=== PATIENT | female | born 1970 | race African-American/Black ===

== ENCOUNTER 2017-01-09 10:39 | Emergency (ER) | payer OTHER ==
[2017-01-09 10:45] VITALS: TEMP 98.2; BMI 18.0
--- NOTE | 2017-01-09 11:06 | PDOC ---
History of Present Illness - General Chief Complaint: Vaginal Bleeding Stated Complaint: DIZZINESS Time Seen by Provider: 01/09/17 11:01 Past History - Past Medical History Allergies/Adverse Reactions: Allergies Allergy/AdvReac Type Severity Reaction Status Date / Time No Known Allergies Allergy Verified 01/09/17 10:43 Home Medications: Ambulatory Orders NK [No Known Home Medication] 01/09/17 - Psycho/Social/Smoking Cessation Hx Anxiety: No Suicidal Ideation: No Smoking History: Never smoked Have you smoked in the past 12 months: No Information on smoking cessation initiated: No Hx Alcohol Use: No Drug/Substance Use Hx: No Substance Use Type: None *Physical Exam - Vital Signs Last Vital Signs Temp Pulse Resp BP Pulse Ox 98.2 F 86 20 151/91 100 01/09/17 10:43 01/09/17 10:43 01/09/17 10:43 01/09/17 10:43 01/09/17 10:43 ED Treatment Course - LABORATORY CBC & Chemistry Diagram: 01/09/17 11:23 01/09/17 11:23 *DC/Admit/Observation/Transfer Diagnosis at time of Disposition: Vaginal bleeding in - Discharge Dispostion Disposition: HOME Condition at time of disposition: Good - Referrals Referrals: STAFF,NOT ON [Primary Care Provider] - - Patient Instructions Printed Discharge Instructions: DI for Vaginal Bleeding During Additional Instructions: Please bring copy of ultrasound and blood work with you to your ACCOUNTING FILE CLERK. Patient plenty of fluids and continue taking her iron pills. If your symptoms worsen he may return to the ED. Otherwise follow-up with your ACCOUNTING FILE CLERK this week as discussed
[2017-01-09] MEDS ORDERED: SODIUM CHLORIDE 1,000 ML IV STA (11:14)
[2017-01-09 11:54] LABS: URINE APPEARANCE SLCLOUDY; URINE BILIRUBIN NEGATIVE (NEGATIVE); URINE BLOOD 3+ (NEGATIVE); URINE COLOR LTYELLOW; URINE GLUCOSE (UA) NEGATIVE (NEGATIVE); URINE KETONE NEGATIVE (NEGATIVE); URINE LEUK ESTERASE NEGATIVE (NEGATIVE); URINE NITRITE NEGATIVE (NEGATIVE); URINE UROBILINOGEN NEGATIVE mg/dL (0.2-1.0)
[2017-01-09 12:03] LABS: ALBUMIN 4.1 g/dl (3.4-5.0); ANION GAP 8 (8-16); CO2 28 mmol/L (21-32); CREATININE 0.8 mg/dL (0.55-1.02); GLUCOSE,RANDOM 87 mg/dL (74-106); SGOT/AST 22 U/L (15-37); SGPT/ALT 25 U/L (12-78); TOT PROT 7.7 g/dl (6.4-8.2)
[2017-01-09 12:08] LABS: ALK PHOS 50 U/L (45-117); BASOPHIL 0.9 % (0-2.0); BILIRUBIN,TOTAL 0.4 mg/dL (0.2-1.0); EOSINOPHIL 4.4 % (0-4.5); MCH 28.6 pg (25.7-33.7); MCHC 32.4 g/dl (32.0-36.0); MEAN CELL VOLUME 88.2 fl (80-96); MEAN PLT VOLUME 9.7 fl (7.5-11.1); NEUTROPHILS 68.6 % (42.8-82.8); PLATELET COUNT 244 K/MM3 (134-434); RDW 17.3 % (11.6-15.6); WHITE BLOOD COUNT 5.6 K/mm3 (4.0-10.0)
[2017-01-09 12:15] LABS: URINE PROTEIN 1+ (NEGATIVE)
--- NOTE | 2017-01-09 12:23 | PDOC ---
History of Present Illness - General Chief Complaint: Vaginal Bleeding Stated Complaint: DIZZINESS Time Seen by Provider: 01/09/17 11:01 History Source: Patient Exam Limitations: No Limitations - History of Present Illness Travel History: No Initial Comments: 01/09/17 12:23 46-year-old female presents to the ED with complaints of increasing vaginal bleeding for the past 3 days associated mild lower abdominal cramping patient states is approximately 4 weeks and had a beta-hCG done 3 days ago by her SENIOR RESERVATIONS AGENT which was around 1200 and then repeated yesterday but did not get her results and when the bleeding increased this morning she decided come to the ER. Patient denies fever, chills but states mild weakness and dizziness since noting the increase of blood this morning. Patient does state is on iron for anemia but denies shortness of breath with exertion. Timing/Duration: reports: getting worse Quality: reports: mild Abdominal Pain Onset Location: reports: suprapubic Pain Radiation: reports: no radiation Activities at Onset: reports: none Aggravating Factors: improves with: None Alleviating Factors: improves with: None Past History - Travel Traveled outside of the country in the last 30 days: No Close contact w/someone who was outside of country & ill: No - Past Medical History Allergies/Adverse Reactions: Allergies Allergy/AdvReac Type Severity Reaction Status Date / Time No Known Allergies Allergy Verified 01/09/17 10:43 Home Medications: Ambulatory Orders NK [No Known Home Medication] 01/09/17 - Reproductive History Is Patient Now?: Yes (#): 5 Para: 2 Therapeutic (s) & number: Yes (2) - Psycho/Social/Smoking Cessation Hx Anxiety: No Suicidal Ideation: No Smoking History: Never smoked Have you smoked in the past 12 months: No Information on smoking cessation initiated: No Hx Alcohol Use: No Drug/Substance Use Hx: No Substance Use Type: None Patient Lives Alone: No Review of Systems - Review of Systems Able to Perform ROS?: No Is the patient limited Jamaican proficient: No Constitutional: Yes: Weakness. No: Fever HEENTM: No: Symptoms Reported Respiratory: No: Symptoms reported Cardiac (ROS): Yes: Lightheadedness ABD/GI: Yes: Abdominal cramping. No: Blood Streaked Bowels, Diarrhea, Nausea, Rectal Bleeding : Yes: Discharge (vaginal bleeding). No: Dysuria Musculoskeletal: No: Symptoms Reported Integumentary: No: Symptoms Reported Neurological: Yes: Weakness (mild generalized), Dizziness (mild upon awakes morning) *Physical Exam - Vital Signs Last Vital Signs Temp Pulse Resp BP Pulse Ox 98.2 F 86 20 151/91 100 01/09/17 10:43 01/09/17 10:43 01/09/17 10:43 01/09/17 10:43 01/09/17 10:43 - Physical Exam General Appearance: Yes: Nourished, Appropriately Dressed. No: Apparent Distress HEENT: positive: EOMI, LUCITA. negative: Pale Conjunctivae Neck: positive: Supple Respiratory/Chest: positive: Lungs Clear, Normal Breath Sounds. negative: Respiratory Distress, Accessory Muscle Use Cardiovascular: positive: Regular Rhythm, Regular Rate. negative: Murmur Female Pelvic Exam: positive: cervical os closed, vaginal bleeding (bright red moderate amount. no clots) Gastrointestinal/Abdominal: positive: Normal Bowel Sounds, Soft, Tenderness ( epigastric ). negative: Distended, Guarding, Rebound Extremity: positive: Normal Capillary Refill. negative: Pedal Edema Integumentary: positive: Normal Color, Warm, Moist Neurologic: positive: Motor Strength 5/5 (ambulatory) ED Treatment Course - LABORATORY CBC & Chemistry Diagram: 01/09/17 11:23 01/09/17 11:23 - ADDITIONAL ORDERS Additional order review: Laboratory Results 01/09/17 01/09/17 11:23 11:10 Sodium 138 Potassium 3.7 Chloride 102 Carbon Dioxide 28 Anion Gap 8 BUN 9 Creatinine 0.8 Creat Clearance w eGFR > 60 Random Glucose 87 Calcium 9.0 Total Bilirubin 0.4 AST 22 ALT 25 Alkaline Phosphatase 50 Total Protein 7.7 Albumin 4.1 Beta HCG, Quant 381.6 Urine Color Ltyellow Urine Appearance Slcloudy Urine pH 6.0 Urine Protein 1+ H Urine Glucose (UA) Negative Urine Ketones Negative Urine Blood 3+ H Urine Nitrite Negative Urine Bilirubin Negative Urine Urobilinogen Negative Ur Leukocyte Esterase Negative 01/09/17 11:23 RBC 4.29 MCV 88.2 MCHC 32.4 RDW 17.3 H MPV 9.7 Neutrophils % 68.6 Lymphocytes % 18.9 Monocytes % 7.2 Eosinophils % 4.4 Basophils % 0.9 - RADIOLOGY Radiology Studies Ordered: Category Date Time Status TRANSVAGINAL US PREG [US] Stat Ultrasound 01/09/17 12:15 Ordered - Medications Given in the ED: ED Medications Discontinued Medications Generic Name Dose Route Start Last Admin Trade Name Ne PRN Reason Stop Dose Admin Sodium Chloride 1,000 mls @ 1,000 mls/hr 01/09/17 11:14 01/09/17 11:30 Normal Saline - IV 01/09/17 12:13 1,000 mls/hr ASDIR STA Administration Medical Decision Making - Medical Decision Making 01/09/17 12:05 Patient complains of patient approximately 3-4 weeks based on LMP presents with increasing vaginal bleeding and cramping. Patient states had a beta hCG 3 days ago of 1200 and was seen again yesterday by her SENIOR RESERVATIONS AGENT but did not follow-up for results and came to the ER. Patient on exam had bright red vaginal bleeding without clots. Patient mild tenderness to suprapubic region. Patient ordered for labs including CBC, comp, urinalysis, type and screen, and beta hCG. Patient will be ordered 4 ultrasound once labs are resulted. 01/09/17 12:46 Laboratory Tests 01/09/17 01/09/17 01/09/17 11:10 11:23 11:23 WBC 5.6 Hgb 12.3 Hct 37.8 Plt Count 244 Neutrophils % 68.6 Sodium 138 Potassium 3.7 Chloride 102 Anion Gap 8 BUN 9 Creatinine 0.8 Random Glucose 87 Beta HCG, Quant 381.6 Urine Protein 1+ H Urine Blood 3+ H Urine Nitrite Negative Ur Leukocyte Esterase Negative Urine RBC 475 Urine WBC 14 01/09/17 13:53 Nose and endometrial echo complex measuring 1 cm with no free fluid noted in the cul-de-sac. There are small uterine fibroids noted measuring 201.5 cm each. The ovaries are not identified. There was no evidence of intrauterine . Extrauterine cannot be entirely excluded. Pt will be discharged home and told to f/u with her KEYBOARD INSTRUMENT REPAIRER this week. *DC/Admit/Observation/Transfer Diagnosis at time of Disposition: Vaginal bleeding in Qualifiers: Trimester: first trimester Qualified Code(s): O46.91 - Antepartum hemorrhage, unspecified, first trimester - Discharge Dispostion Disposition: HOME Condition at time of disposition: Good - Referrals Referrals: STAFF,NOT ON [Primary Care Provider] - - Patient Instructions Printed Discharge Instructions: DI for Vaginal Bleeding During Additional Instructions: Please bring copy of ultrasound and blood work with you to your KEYBOARD INSTRUMENT REPAIRER. Patient plenty of fluids and continue taking her iron pills. If your symptoms worsen he may return to the ED. Otherwise follow-up with your KEYBOARD INSTRUMENT REPAIRER this week as discussed
[2017-01-09 12:26] LABS: URINE MUCUS RARE; URINE RBC 475 /hpf (0-3); URINE WBC 14 /hpf (3-5)
--- NOTE | 2017-01-09 12:43 | PDOC ---
*Physical Exam - Vital Signs Last Vital Signs Temp Pulse Resp BP Pulse Ox 98.2 F 86 20 151/91 100 01/09/17 10:43 01/09/17 10:43 01/09/17 10:43 01/09/17 10:43 01/09/17 10:43 ED Treatment Course - LABORATORY CBC & Chemistry Diagram: 01/09/17 11:23 01/09/17 11:23 - ADDITIONAL ORDERS Additional order review: Laboratory Results 01/09/17 01/09/17 11:23 11:10 Sodium 138 Potassium 3.7 Chloride 102 Carbon Dioxide 28 Anion Gap 8 BUN 9 Creatinine 0.8 Creat Clearance w eGFR > 60 Random Glucose 87 Calcium 9.0 Total Bilirubin 0.4 AST 22 ALT 25 Alkaline Phosphatase 50 Total Protein 7.7 Albumin 4.1 Beta HCG, Quant 381.6 Urine Color Ltyellow Urine Appearance Slcloudy Urine pH 6.0 Urine Protein 1+ H Urine Glucose (UA) Negative Urine Ketones Negative Urine Blood 3+ H Urine Nitrite Negative Urine Bilirubin Negative Urine Urobilinogen Negative Ur Leukocyte Esterase Negative Urine RBC 475 Urine WBC 14 Ur Epithelial Cells Rare Urine Mucus Rare 01/09/17 11:23 RBC 4.29 MCV 88.2 MCHC 32.4 RDW 17.3 H MPV 9.7 Neutrophils % 68.6 Lymphocytes % 18.9 Monocytes % 7.2 Eosinophils % 4.4 Basophils % 0.9 - Medications Given in the ED: ED Medications Discontinued Medications Generic Name Dose Route Start Last Admin Trade Name Freq PRN Reason Stop Dose Admin Sodium Chloride 1,000 mls @ 1,000 mls/hr 01/09/17 11:14 01/09/17 11:30 Normal Saline - IV 01/09/17 12:13 1,000 mls/hr ASDIR STA Administration Medical Decision Making - Medical Decision Making 01/09/17 12:42 Patient seen and evaluated with the nurse practitioner. I agree with the overall evaluation, assessment, and management with the following summary of visit: 46-year-old female presenting with persistent vaginal bleeding, approximate 4 weeks gestation tracking hCG as outpatient but with worsening bleeding today and lightheadedness so presents for evaluation. Agree with management as outlined including labs and IV fluids, hCG seems to be trending downward suggestive of spontaneous miscarriage. *DC/Admit/Observation/Transfer Diagnosis at time of Disposition: Antepartum hemorrhage Qualifiers: Trimester: first trimester Qualified Code(s): O46.91 - Antepartum hemorrhage, unspecified, first trimester
[2017-01-09 14:47] VITALS: BP 142/82; PULSE 81
== END 2017-01-09 14:25 | disposition home or self-care (01) ==
LOC: JER 10:39
PROC: 3E0337Z Introduction of Electrolytic and Water Balance Substance into Peripheral Vein, Percutaneous Approach (ICD-10-PCS; principal; 2017-01-09)
DX: O26.891 Other specified pregnancy related conditions, first trimester (principal); O46.91 Antepartum hemorrhage, unspecified, first trimester; O34.11 Maternal care for benign tumor of corpus uteri, first trimester; D25.9 Leiomyoma of uterus, unspecified; Z3A.01 Less than 8 weeks gestation of pregnancy
CPT/HCPCS: 36415; 76817-TC; 80053; 81003; 81015; 84702; 85025; 86850; 86900; 86901; 87086; 96360; 99283-25

== ENCOUNTER 2017-03-03 14:00 | Emergency (ER) | payer SELFPAY ==
[2017-03-03 14:13] VITALS: TEMP 98.6; BMI 18.3
[2017-03-03] MEDS ORDERED: SODIUM CHLORIDE 1,000 ML IV STA (14:38)
[2017-03-03 14:51] LABS: EOSINOPHIL 3.7 % (0-4.5); MCH 29.7 pg (25.7-33.7); MCHC 32.9 g/dl (32.0-36.0); MEAN CELL VOLUME 90.3 fl (80-96); MEAN PLT VOLUME 9.3 fl (7.5-11.1); NEUTROPHILS 62.5 % (42.8-82.8); PLATELET COUNT 227 K/MM3 (134-434); RDW 17.8 % (11.6-15.6); WHITE BLOOD COUNT 5.4 K/mm3 (4.0-10.0)
[2017-03-03 14:58] LABS: URINE APPEARANCE CLEAR; URINE BILIRUBIN NEGATIVE (NEGATIVE); URINE BLOOD 3+ (NEGATIVE); URINE COLOR RED; URINE GLUCOSE (UA) NEGATIVE (NEGATIVE); URINE KETONE NEGATIVE (NEGATIVE); URINE LEUK ESTERASE NEGATIVE (NEGATIVE); URINE NITRITE NEGATIVE (NEGATIVE); URINE UROBILINOGEN NEGATIVE mg/dL (0.2-1.0)
[2017-03-03 14:59] LABS: URINE PROTEIN 1+ (NEGATIVE)
[2017-03-03 15:12] LABS: CALCIUM OXALATE CRYSTALS RARE /hpf (NONE SEEN); URINE BACTERIA FEW /hpf (NONE SEEN); URINE RBC 61 /hpf (0-3); URINE WBC 67 /hpf (3-5)
[2017-03-03 15:19] LABS: ALBUMIN 3.5 g/dl (3.4-5.0); ANION GAP 7 (8-16); CALCIUM 8.2 mg/dL (8.5-10.1); CO2 25 mmol/L (21-32); GLUCOSE,RANDOM 80 mg/dL (74-106); SGPT/ALT 18 U/L (12-78)
[2017-03-03 15:21] LABS: BILIRUBIN,TOTAL 0.3 mg/dL (0.2-1.0); CREATININE 0.6 mg/dL (0.55-1.02); SGOT/AST 16 U/L (15-37); TOT PROT 6.7 g/dl (6.4-8.2)
--- NOTE | 2017-03-03 15:21 | PDOC ---
History of Present Illness <Ramiro Clemente - Last Filed: 03/03/17 15:38> - History of Present Illness Initial Comments: 03/03/17 15:20 "The patient is a 46 year old female, with a significant past medical history of anemia and one previous miscarriage (December,), who presents to the emergency department complaining of lightheadedness beginning approx. three days ago and palpitations that began today (now resolved). The patient reports that earlier today she felt hot and dizzy like she was going to syncopize and reports palpitations that lasted for a while (patient unable to provide exact duration of palpitations). Denies CP/SOB. She states she had an episode of loose stool today. The patient reports that she is currently on her menstrual period and is experiencing vaginal bleeding and associated abdominal cramps. She denies loss of consciousness. She denies chance of . She denies recent fever or chills. She denies recent vomiting or constipation. She denies recent dysuria, frequency, urgency or hematuria. She denies recent chest pain or shortness of breath. Allergies: NKA Primary Care Physician: Dr. Tom Nava <Carlton Agustin - Last Filed: 03/03/17 16:40> - General Chief Complaint: Lightheaded Stated Complaint: DIZINESS Time Seen by Provider: 03/03/17 14:26 Past History <Ramiro Clemente - Last Filed: 03/03/17 15:38> - Past Medical History Other medical history: DENIES. - Reproductive History (#): 5 Para: 2 Therapeutic (s) & number: Yes (2) - Psycho/Social/Smoking Cessation Hx Anxiety: No Suicidal Ideation: No Smoking History: Never smoked Have you smoked in the past 12 months: No Hx Alcohol Use: No Drug/Substance Use Hx: No Substance Use Type: None <Carlton Agustin - Last Filed: 03/03/17 16:40> - Past Medical History Allergies/Adverse Reactions: Allergies Allergy/AdvReac Type Severity Reaction Status Date / Time No Known Allergies Allergy Verified 03/03/17 14:09 Home Medications: Ambulatory Orders Cephalexin [Keflex] 500 mg PO BID #14 capsule 03/03/17 Review of Systems - Review of Systems Comments:: 03/03/17 15:25 "GENERAL/CONSTITUTIONAL: +weakness.No fever or chills. HEAD, EYES, EARS, NOSE AND THROAT: No change in vision. No ear pain or discharge. No sore throat. CARDIOVASCULAR: +Palpitations (resolved). No chest pain or shortness of breath. RESPIRATORY: No cough, wheezing, or hemoptysis. GASTROINTESTINAL: +Diarrhea. No nausea, vomiting or constipation. GENITOURINARY: No dysuria, frequency, or change in urination. MUSCULOSKELETAL: No joint or muscle swelling or pain. No neck or back pain. SKIN: No rash NEUROLOGIC: No headache, no dizziness, No loss of consciousness. ENDOCRINE: No increased thirst. No abnormal weight change. HEMATOLOGIC/LYMPHATIC: No anemia, easy bleeding, or history of blood clots. ALLERGIC/IMMUNOLOGIC: No hives or skin allergy. " <Carlton Agustin - Last Filed: 03/03/17 16:40> *Physical Exam - Vital Signs Last Vital Signs Temp Pulse Resp BP Pulse Ox 98.6 F 83 19 152/94 100 03/03/17 14:10 03/03/17 14:10 03/03/17 14:10 03/03/17 14:10 03/03/17 14:10 <Ramiro Clemente - Last Filed: 03/03/17 15:38> - Vital Signs Last Vital Signs Temp Pulse Resp BP Pulse Ox 98.6 F 83 19 152/94 100 03/03/17 14:10 03/03/17 14:10 03/03/17 14:10 03/03/17 14:10 03/03/17 14:10 - Physical Exam Comments: 03/03/17 15:27 "GENERAL: Awake, alert, and fully oriented, in no acute distress HEAD: No signs of trauma EYES: PERRLA, EOMI, sclera anicteric, conjunctiva clear ENT: Auricles normal inspection, hearing grossly normal, nares patent, oropharynx clear without exudates. Moist mucosa NECK: Normal ROM, supple, no lymphadenopathy, JVD, or masses LUNGS: Breath sounds equal, clear to auscultation bilaterally. No wheezes, and no crackles HEART: Regular rate and rhythm, normal S1 and S2, no murmurs, rubs or gallops ABDOMEN: Soft, nontender, HYPERactive bowel sounds. No guarding, no rebound. No masses EXTREMITIES: Normal range of motion, no edema. No clubbing or cyanosis. No cords , erythema, or tenderness NEUROLOGICAL: Cranial nerves II through XII intact. 5/5 strength+sensation in all extremities, cerebellar tests normal, Normal speech, normal gait SKIN: Warm, Dry, normal turgor, no rashes or lesions noted. " <Calrton Agustin - Last Filed: 03/03/17 16:40> ED Treatment Course - LABORATORY CBC & Chemistry Diagram: 03/03/17 14:40 03/03/17 14:40 - ADDITIONAL ORDERS Additional order review: Laboratory Results 03/03/17 03/03/17 03/03/17 14:45 14:40 14:40 Sodium 133 L Potassium 3.8 Chloride 101 Carbon Dioxide 25 Anion Gap 7 L BUN 6 L D Creatinine 0.6 D Creat Clearance w eGFR > 60 Random Glucose 80 Calcium 8.2 L Total Bilirubin 0.3 D AST 16 D ALT 18 D Alkaline Phosphatase 45 Creatine Kinase 114 Troponin I < 0.02 Total Protein 6.7 Albumin 3.5 TSH 1.96 Beta HCG, Quant < 1.0 Urine Color Red Urine Appearance Clear Urine pH 8.0 D Urine Protein 1+ H Urine Glucose (UA) Negative Urine Ketones Negative Urine Blood 3+ H Urine Nitrite Negative Urine Bilirubin Negative Urine Urobilinogen Negative Urine RBC 61 Urine WBC 67 Ur Epithelial Cells Rare Calcium Oxalate Crystal Rare Urine Bacteria Few Blood Type Cancelled Antibody Screen Cancelled Spec Expiration Date Cancelled 03/03/17 03/03/17 14:40 14:40 Sodium Cancelled Potassium Cancelled Chloride Cancelled Carbon Dioxide Cancelled Anion Gap Cancelled BUN Cancelled Creatinine Cancelled Creat Clearance w eGFR Cancelled Random Glucose Cancelled Calcium Cancelled Total Bilirubin Cancelled AST Cancelled ALT Cancelled Alkaline Phosphatase Cancelled Creatine Kinase Cancelled Cancelled Troponin I Cancelled Cancelled Total Protein Cancelled Albumin Cancelled TSH Beta HCG, Quant Urine Color Urine Appearance Urine pH Urine Protein Urine Glucose (UA) Urine Ketones Urine Blood Urine Nitrite Urine Bilirubin Urine Urobilinogen Urine RBC Urine WBC Ur Epithelial Cells Calcium Oxalate Crystal Urine Bacteria Blood Type Antibody Screen Spec Expiration Date 03/03/17 14:40 RBC 3.80 MCV 90.3 MCHC 32.9 RDW 17.8 H MPV 9.3 Neutrophils % 62.5 Lymphocytes % 22.7 D Monocytes % 10.1 Eosinophils % 3.7 Basophils % 1.0 - Medications Given in the ED: ED Medications Discontinued Medications Generic Name Dose Route Start Last Admin Trade Name Ne PRN Reason Stop Dose Admin Sodium Chloride 1,000 mls @ 1,000 mls/hr 03/03/17 14:38 03/03/17 14:53 Normal Saline - IV 03/03/17 15:37 1,000 mls/hr ASDIR STA Administration <Ramiro Clemente - Last Filed: 03/03/17 15:38> - LABORATORY CBC & Chemistry Diagram: 03/03/17 14:40 03/03/17 14:40 - ADDITIONAL ORDERS Additional order review: Laboratory Results 03/03/17 03/03/17 03/03/17 14:45 14:40 14:40 Sodium Cancelled Potassium Cancelled Chloride Cancelled Carbon Dioxide Cancelled Anion Gap Cancelled BUN Cancelled Creatinine Cancelled Creat Clearance w eGFR Cancelled Random Glucose Cancelled Calcium Cancelled Total Bilirubin Cancelled AST Cancelled ALT Cancelled Alkaline Phosphatase Cancelled Creatine Kinase Cancelled Troponin I Cancelled Total Protein Cancelled Albumin Cancelled Urine Color Red Urine Appearance Clear Urine pH 8.0 D Urine Protein 1+ H Urine Glucose (UA) Negative Urine Ketones Negative Urine Blood 3+ H Urine Nitrite Negative Urine Bilirubin Negative Urine Urobilinogen Negative Urine RBC 61 Urine WBC 67 Ur Epithelial Cells Rare Calcium Oxalate Crystal Rare Urine Bacteria Few Blood Type Cancelled Antibody Screen Cancelled Spec Expiration Date Cancelled 03/03/17 14:40 Sodium Potassium Chloride Carbon Dioxide Anion Gap BUN Creatinine Creat Clearance w eGFR Random Glucose Calcium Total Bilirubin AST ALT Alkaline Phosphatase Creatine Kinase Cancelled Troponin I Cancelled Total Protein Albumin Urine Color Urine Appearance Urine pH Urine Protein Urine Glucose (UA) Urine Ketones Urine Blood Urine Nitrite Urine Bilirubin Urine Urobilinogen Urine RBC Urine WBC Ur Epithelial Cells Calcium Oxalate Crystal Urine Bacteria Blood Type Antibody Screen Spec Expiration Date 03/03/17 14:40 RBC 3.80 MCV 90.3 MCHC 32.9 RDW 17.8 H MPV 9.3 Neutrophils % 62.5 Lymphocytes % 22.7 D Monocytes % 10.1 Eosinophils % 3.7 Basophils % 1.0 - RADIOLOGY Radiology Studies Ordered: Category Date Time Status CHEST PA & LAT [RAD] Stat Radiology 03/03/17 14:38 Ordered <Carlton Agustin - Last Filed: 03/03/17 16:40> Medical Decision Making - Medical Decision Making 03/03/17 15:28 46 F with weakness and transient episode of palpitations + presyncope in the context of possible diarrheal illness. Pt also currently menstruating. Symptoms likely 2/2 volume depletion from diarrhea. Also consider anemia. Less likely to be cardiac in etiology as pt with no cardiac history and has normal vitals. - Labs - EKG - CXR, UA - IVF 03/03/17 16:37 CBC,CMP WBC 5.4 K/mm3 (4.0-10.0) 03/03/17 14:40 RBC 3.80 M/mm3 (3.60-5.2) 03/03/17 14:40 Hgb 11.3 GM/dL (10.7-15.3) 03/03/17 14:40 Hct 34.3 % (32.4-45.2) 03/03/17 14:40 MCV 90.3 fl (80-96) 03/03/17 14:40 MCH 29.7 pg (25.7-33.7) 03/03/17 14:40 MCHC 32.9 g/dl (32.0-36.0) 03/03/17 14:40 RDW 17.8 % (11.6-15.6) H 03/03/17 14:40 Plt Count 227 K/MM3 (134-434) 03/03/17 14:40 MPV 9.3 fl (7.5-11.1) 03/03/17 14:40 Neutrophils % 62.5 % (42.8-82.8) 03/03/17 14:40 Lymphocytes % 22.7 % (8-40) D 03/03/17 14:40 Monocytes % 10.1 % (3.8-10.2) 03/03/17 14:40 Eosinophils % 3.7 % (0-4.5) 03/03/17 14:40 Basophils % 1.0 % (0-2.0) 03/03/17 14:40 Sodium 133 mmol/L (136-145) L 03/03/17 14:40 Potassium 3.8 mmol/L (3.5-5.1) 03/03/17 14:40 Chloride 101 mmol/L (98-107) 03/03/17 14:40 Carbon Dioxide 25 mmol/L (21-32) 03/03/17 14:40 Anion Gap 7 (8-16) L 03/03/17 14:40 BUN 6 mg/dL (7-18) L D 03/03/17 14:40 Creatinine 0.6 mg/dL (0.55-1.02) D 03/03/17 14:40 Creat Clearance w eGFR > 60 (>60) 03/03/17 14:40 Random Glucose 80 mg/dL (74-106) 03/03/17 14:40 Calcium 8.2 mg/dL (8.5-10.1) L 03/03/17 14:40 Total Bilirubin 0.3 mg/dL (0.2-1.0) D 03/03/17 14:40 AST 16 U/L (15-37) D 03/03/17 14:40 ALT 18 U/L (12-78) D 03/03/17 14:40 Alkaline Phosphatase 45 U/L (45-117) 03/03/17 14:40 Creatine Kinase 114 IU/L (26-192) 03/03/17 14:40 Troponin I < 0.02 ng/ml (0.00-0.05) 03/03/17 14:40 Total Protein 6.7 g/dl (6.4-8.2) 03/03/17 14:40 Albumin 3.5 g/dl (3.4-5.0) 03/03/17 14:40 TSH 1.96 uIU/ml (0.358-3.74) 03/03/17 14:40 Beta HCG, Quant < 1.0 mIU/ml 03/03/17 14:40 Urine Test Results Urine Color Red 03/03/17 14:45 Urine Appearance Clear 03/03/17 14:45 Urine pH 8.0 (5.0-8.0) D 03/03/17 14:45 Urine Protein 1+ (NEGATIVE) H 03/03/17 14:45 Urine Glucose (UA) Negative (NEGATIVE) 03/03/17 14:45 Urine Ketones Negative (NEGATIVE) 03/03/17 14:45 Urine Blood 3+ (NEGATIVE) H 03/03/17 14:45 Urine Nitrite Negative (NEGATIVE) 03/03/17 14:45 Urine Bilirubin Negative (NEGATIVE) 03/03/17 14:45 Urine RBC 61 /hpf (0-3) 03/03/17 14:45 Urine WBC 67 /hpf (3-5) 03/03/17 14:45 Ur Epithelial Cells Rare /hpf (FEW) 03/03/17 14:45 Urine Bacteria Few /hpf (NONE SEEN) 03/03/17 14:45 Pt reassessed - reports she feels better s/p IVF. Pt with possible UTI. Will send home with course of keflex. <Carlton Agustin - Last Filed: 03/03/17 16:40> *DC/Admit/Observation/Transfer - Attestations Scribe Attestion: 03/03/17 15:38 Documentation prepared by Ramiro Clemente, acting as medical van driver for Carlton Agustin MD. <Ramiro Clemente - Last Filed: 03/03/17 15:38> - Attestations Physician Attestion: 03/03/17 16:38 I, Dr. Carlton Agustin MD, attest that this document has been prepared under my direction and personally reviewed by me in its entirety. I further attest, that it accurately reflects all work, treatment, procedures and medical decision -making performed by me. <Carlton Agustin - Last Filed: 03/03/17 16:40> Diagnosis at time of Disposition: Lightheadedness - Discharge Dispostion Disposition: HOME Condition at time of disposition: Good - Referrals Referrals: Tom Nava [Primary Care Provider] - - Patient Instructions Printed Discharge Instructions: Dizziness, Nonvertigo Additional Instructions: Take the antibiotics as prescribed to treat your urine infection. Follow up with your primary doctor within 1-2 weeks.
[2017-03-03 15:25] LABS: ALK PHOS 45 U/L (45-117); CPK 114 IU/L (26-192); THYROID STIMULATING HORMONE 1.96 uIU/ml (0.358-3.74); TROPONIN I < 0.02 ng/ml (0.00-0.05)
[2017-03-03 17:10] VITALS: BP 150/91; PULSE 81
--- NOTE | 2017-03-05 16:38 | EKG ---
Test Reason : Blood Pressure : / mmHG Vent. Rate : 081 BPM Atrial Rate : 081 BPM P-R Int : 180 ms QRS Dur : 076 ms QT Int : 394 ms P-R-T Axes : 075 054 045 degrees QTc Int : 457 ms NORMAL SINUS RHYTHM POSSIBLE LEFT ATRIAL ENLARGEMENT LEFT VENTRICULAR HYPERTROPHY ABNORMAL ECG NO PREVIOUS ECGS AVAILABLE Confirmed by LAUREN HOFFMAN, ALISIA ([id number]) on 03/05/2017 4:38:03 PM Referred By: Confirmed By:ALISIA AGUILAR MD
== END 2017-03-03 17:10 | disposition home or self-care (01) ==
LOC: JER 14:00
PROC: 3E0337Z Introduction of Electrolytic and Water Balance Substance into Peripheral Vein, Percutaneous Approach (ICD-10-PCS; principal; 2017-03-03)
DX: R42 Dizziness and giddiness (principal); R53.1 Weakness
CPT/HCPCS: 36415; 71020-TC; 80053; 81003; 81015; 84443; 84484; 84702; 85025; 93005; 93010; 99284-25

== ENCOUNTER 2017-03-19 16:47 | Emergency (ER) | payer OTHER ==
--- NOTE | 2017-03-19 17:19 | PDOC ---
Attending Attestation - Resident Resident Name: Priya Sullivan - ED Attending Attestation I have performed the following: I have examined & evaluated the patient, The case was reviewed & discussed with the resident, I agree w/resident's findings & plan, Exceptions are as noted - HPI HPI: 03/19/17 18:10 46 yo female has had intermittnet recurrent episodes of palpitations for past month. she was seen here in Feb and also had a work up at [facility] for the same complaint - Physicial Exam PE: 03/19/17 18:11 thin 46 yo female HEENT exopthalmous neck no bruits lungs cta b/l c vr [id number] abd soft nontender extremities- no deformities neuro axox3,ambulatory - Medical Decision Making 03/20/17 16:34 this pt does have an appt with her PCP this week.she was given copies of all her labs from her Feb visit and copy of ekg. Spoke at length to her about having an ECHO and holter monitoring done as outpt.
--- NOTE | 2017-03-19 17:22 | PDOC ---
History of Present Illness - General Stated Complaint: Blood Pressure Problem Time Seen by Provider: 03/19/17 17:16 History Source: Patient - History of Present Illness Initial Comments: 03/19/17 18:05 CC: Palpitations Patient is a 46 y.o. female with a PMH of CHRISTOPHER and recent spontaneous ( 01/01) as well as multiple visits to our ED as well as other facilities who presents with palpitations. Patient states she woke up this morning and felt palpitations. Patient denies any associated chest pain, shortness of breath, diaphoresis or abdominal pain. Patient further denies any dysuria, hematuria, increased frequency or urgency. Patient notes labs at her prior visit to our ED as well as at other institutions noted normal TSH, mild anemia (Hb 11) and no dysrthmia on EKGs. Patient notes she has a previously scheduled appointment with her PCP this coming week. Past History - Past Medical History Allergies/Adverse Reactions: Allergies Allergy/AdvReac Type Severity Reaction Status Date / Time No Known Allergies Allergy Verified 03/19/17 17:22 Home Medications: Ambulatory Orders NK [No Known Home Medication] 03/19/17 - Reproductive History (#): 5 Para: 2 Therapeutic (s) & number: Yes (2) - Suicide/Smoking/Psychosocial Hx Smoking History: Never smoked Have you smoked in the past 12 months: No Hx Alcohol Use: No Drug/Substance Use Hx: No Substance Use Type: None Review of Systems - Review of Systems Constitutional: No: Chills, Fever HEENTM: No: Blurred Vision, Double Vision, Throat Pain Respiratory: No: Shortness of Breath, Wheezing Cardiac (ROS): Yes: Lightheadedness, Palpitations. No: Chest Pain, Edema ABD/GI: No: Constipated, Diarrhea, Nausea, Vomiting : No: Burning, Dysuria Psychiatric: Yes: Anxiety All Other Systems: Reviewed and Negative *Physical Exam - Physical Exam General Appearance: Yes: Nourished, Thin Neck: positive: Trachea midline, Supple Respiratory/Chest: positive: Lungs Clear, Normal Breath Sounds Cardiovascular: positive: Regular Rhythm, Regular Rate, S1, S2 Medical Decision Making - Medical Decision Making 03/19/17 18:28 Patient is a 46 y.o. female who presents c/o palpitations. As patient was recently evaluated at our facility as well as an outside ED for identical complaint, repeat EKG was ordered to determine if there was any change from patient's baseline. EKG shoed NSR with HR 75, no ST elevations/depressions, normal CA and no QT prolongation- consistent with previous ECG. Patient discharged with specific instruction to follow up with PCP for referral to union steward for Stress Testing and Holter monitor. *DC/Admit/Observation/Transfer Diagnosis at time of Disposition: Heart palpitations, Anxiety - Discharge Dispostion Disposition: HOME Condition at time of disposition: Good Admit: No - Referrals Referrals: Tom Nava [Primary Care Provider] - - Patient Instructions Printed Discharge Instructions: DI for Palpitations Additional Instructions: Please keep your previously scheduled appointment with your primary care doctor for later this week. Please request referral to cardiology for Echocardiogram as well as Holter monitor. Please return to the ED should you experience a worsening of your symptoms.
[2017-03-19 17:36] VITALS: TEMP 98.5; BMI 18.3
[2017-03-19 18:21] VITALS: BP 137/80; PULSE 86
--- NOTE | 2017-03-20 09:36 | EKG ---
Test Reason : Blood Pressure : / mmHG Vent. Rate : 075 BPM Atrial Rate : 075 BPM P-R Int : 186 ms QRS Dur : 078 ms QT Int : 390 ms P-R-T Axes : 071 022 037 degrees QTc Int : 435 ms NORMAL SINUS RHYTHM POSSIBLE LEFT ATRIAL ENLARGEMENT LEFT VENTRICULAR HYPERTROPHY ABNORMAL ECG WHEN COMPARED WITH ECG OF 03-MAR-2017 16:03, NO SIGNIFICANT CHANGE WAS FOUND Confirmed by ALISIA AGUILAR MD ([id number]) on 03/20/2017 9:36:02 AM Referred By: Confirmed By:ALISIA AGUILAR MD
== END 2017-03-19 18:21 | disposition home or self-care (01) ==
LOC: JER 16:47
DX: R00.2 Palpitations (principal); F41.9 Anxiety disorder, unspecified; D50.8 Other iron deficiency anemias
CPT/HCPCS: 93005; 93010; 99282-25

== ENCOUNTER 2017-04-07 04:48 | Emergency (ER) | payer OTHER ==
--- NOTE | 2017-04-07 04:51 | PDOC ---
History of Present Illness - General History Source: Patient Exam Limitations: No Limitations - History of Present Illness Initial Comments: 04/07/17 05:17 The patient is a 46 year old female, with a significant past medical history of CHRISTOPHER, vitamin B deficiency, and a spontaneous in (12/2016), who presents to the emergency department with palpitations for several days. The patient reports waking up this morning, because her heart was racing. Per EMS the patients heart rate was 120 bpm when they arrived on scene. Patient states she develops anxiety with these episodes of palpitations, because she is unsure if there is something wrong with her. Yesterday, patient reports she noted some shortness of breath, especially with exertion. She denies any associated chest pain, diaphoresis, or lower extremity edema. She denies any fever, chills, headache, dizziness, lightheadedness, or changes in vision. Patient reports she has had palpitations the past couple of weeks and was placed on a heart monitor by her Splunk Developer for evaluation of her palpitations. Patient reports she has had blood work done in her primarys office, our ED, and other institutions, which were notable for normal TSH, mild anemia (Hgb 11), and vitamin B deficiency. Patient reports her LMP was 03/31/17. Allergies: NKDA Social History: Non smoker. No ETOH or recreational drug use. Pt reports she lives at home with family. PCP: Dr. Nava <Devika Lugo - Last Filed: 04/07/17 05:48> <Elis Corona - Last Filed: 04/07/17 06:52> - General Stated Complaint: PALPITATIONS Time Seen by Provider: 04/07/17 04:50 Past History <Devika Lugo - Last Filed: 04/07/17 05:48> - Reproductive History (#): 5 Para: 2 Therapeutic (s) & number: Yes (2) - Suicide/Smoking/Psychosocial Hx Smoking History: Never smoked Have you smoked in the past 12 months: No Hx Alcohol Use: No Drug/Substance Use Hx: No Substance Use Type: None <Elis Corona - Last Filed: 04/07/17 06:52> - Past Medical History Allergies/Adverse Reactions: Allergies Allergy/AdvReac Type Severity Reaction Status Date / Time No Known Allergies Allergy Verified 04/07/17 05:09 Home Medications: Ambulatory Orders Cholecalciferol (Vitamin D3) [Vitamin D -] 1 tab PO DAILY 04/07/17 Ranitidine HCl 150 mg PO DAILY 04/07/17 Review of Systems - Review of Systems Able to Perform ROS?: Yes Comments:: 04/07/17 05:17 GENERAL/CONSTITUTIONAL: No fever or chills. No weakness. HEAD, EYES, EARS, NOSE AND THROAT: No change in vision. No ear pain or discharge. No sore throat. CARDIOVASCULAR: Yes: palpitations, shortness of breath. No chest pain, diaphoresis, or lower extremity edema. RESPIRATORY: Yes dyspnea, dyspnea on exertion. No cough, wheezing, or hemoptysis. GASTROINTESTINAL: No nausea, vomiting, diarrhea or constipation. GENITOURINARY: No dysuria, frequency, or change in urination. MUSCULOSKELETAL: No joint or muscle swelling or pain. No neck or back pain. SKIN: No rash NEUROLOGIC: No headache, vertigo, loss of consciousness, or change in strength/ sensation. ENDOCRINE: No increased thirst. No abnormal weight change. HEMATOLOGIC/LYMPHATIC: No anemia, easy bleeding, or history of blood clots. ALLERGIC/IMMUNOLOGIC: No hives or skin allergy. PSYCH: Yes anxious. <Devika Lugo - Last Filed: 04/07/17 05:48> *Physical Exam - Vital Signs Last Vital Signs Temp Pulse Resp BP Pulse Ox 97.9 F 102 H 18 166/105 100 04/07/17 05:04 04/07/17 05:04 04/07/17 05:04 04/07/17 05:04 04/07/17 05:04 - Physical Exam Comments: 04/07/17 05:17 GENERAL: The patient is awake, alert, and fully oriented, in no acute distress. HEAD: Normal with no signs of trauma. EYES: Pupils equal, round and reactive to light, extraocular movements intact, sclera anicteric, conjunctiva clear with no pallor. ENT: Ears normal, nares patent, oropharynx clear without exudates. Moist mucous membranes. NECK: Normal range of motion, supple without lymphadenopathy, JVD, or masses. LUNGS: Breath sounds equal, clear to auscultation bilaterally. No wheeze/ crackles. HEART: Regular rate and rhythm, normal S1 and S2 without murmur or rub. ABDOMEN: Soft/nontender/nondistended. BS wnl. No guarding or rebound. No palpable masses. No hepatosplenomegaly. EXTREMITIES: Normal range of motion, no edema. No clubbing or cyanosis. No cords, erythema, or tenderness. NEUROLOGICAL: Cranial nerves II through XII grossly intact. Normal speech, normal gait. PSYCH: Normal mood, normal affect. SKIN: Warm, Dry, normal turgor, no rashes or lesions noted. <Devika Lugo - Last Filed: 04/07/17 05:48> ED Treatment Course - LABORATORY CBC & Chemistry Diagram: 04/07/17 05:05 04/07/17 05:05 <Devika Lugo - Last Filed: 04/07/17 05:48> - LABORATORY CBC & Chemistry Diagram: 04/07/17 05:05 04/07/17 05:05 <Elis Corona - Last Filed: 04/07/17 06:52> Medical Decision Making - Medical Decision Making 04/07/17 05:40 Pt is refusing to take the toprol that I ordered for her. SHe has been in the ER in the past for HTN. She is noncomplaint with HTN meds. PT is in denial and tells me that her only medical problem is anemia and low B12 and GERD. If labs are normal, pt will be discharged. I cannot force her to take beta blockers. 04/07/17 06:51 Labs are normal; pt asked to follow with her crib clerk. She is refusing BP meds, but I made it clear to pt that she has HTN; she has had HTN in out ER in the past. <Elis Corona - Last Filed: 04/07/17 06:52> *DC/Admit/Observation/Transfer - Attestations Scribe Attestion: 04/07/17 05:17 Documentation prepared by Devika Lugo, acting as medical instrument cable fabricator for Elis Corona MD. <Devika Lugo - Last Filed: 04/07/17 05:48> - Discharge Dispostion Admit: No <Elis Corona - Last Filed: 04/07/17 06:52> Diagnosis at time of Disposition: Hypertension - Discharge Dispostion Disposition: HOME Condition at time of disposition: Stable - Patient Instructions Printed Discharge Instructions: DI for High Blood Pressure
[2017-04-07 05:06] VITALS: PULSE 102; TEMP 97.9; BMI 18.0
[2017-04-07] MEDS ORDERED: METOPROLOL SUCCINATE 50 MG TAB.SR.24H (FP) PO ONE (05:06)
[2017-04-07] MEDS ORDERED: METOPROLOL SUCCINATE 50 MG TAB.SR.24H (FP) ONE (05:16)
[2017-04-07 05:21] LABS: BASOPHIL 0.7 % (0-2.0); EOSINOPHIL 5.8 % (0-4.5); MCH 30.9 pg (25.7-33.7); MCHC 33.4 g/dl (32.0-36.0); MEAN CELL VOLUME 92.5 fl (80-96); MEAN PLT VOLUME 9.4 fl (7.5-11.1); NEUTROPHILS 52.1 % (42.8-82.8); PLATELET COUNT 263 K/MM3 (134-434); RDW 16.5 % (11.6-15.6); WHITE BLOOD COUNT 5.8 K/mm3 (4.0-10.0)
[2017-04-07 05:22] VITALS: BP 153/100
[2017-04-07 05:54] LABS: ALBUMIN 3.7 g/dl (3.4-5.0); ANION GAP 10 (8-16); BILIRUBIN,TOTAL 0.3 mg/dL (0.2-1.0); CALCIUM 8.1 mg/dL (8.5-10.1); CO2 25 mmol/L (21-32); CREATININE 0.7 mg/dL (0.55-1.02); GLUCOSE,RANDOM 86 mg/dL (74-106); SGOT/AST 12 U/L (15-37); SGPT/ALT 22 U/L (12-78); TOT PROT 6.6 g/dl (6.4-8.2)
[2017-04-07 05:57] LABS: ALK PHOS 47 U/L (45-117); CPK 71 IU/L (26-192); TROPONIN I < 0.02 ng/ml (0.00-0.05)
== END 2017-04-07 06:32 | disposition home or self-care (01) ==
LOC: JER 04:48
DX: I10 Essential (primary) hypertension (principal)
CPT/HCPCS: 36415; 80053; 82550; 84484; 85025; 99282-25

== ENCOUNTER 2021-07-08 18:28 | Emergency (ER) | payer BC, OTHER ==
[2021-07-08 19:24] VITALS: BP 155/100; PULSE 90; TEMP 98.3; BMI 18.7
[2021-07-08] MEDS ORDERED: MECLIZINE HCL 12.5 MG TABLET PO ONE (21:35)
[2021-07-08] MEDS ORDERED: MECLIZINE HCL 12.5 MG TABLET ONE (21:40)
[2021-07-08 22:07] LABS: BASO % 0.7 % (0-2.0); EOS % 5.1 % (0-4.5); HEMATOCRIT 38.2 % (32.4-45.2); HEMOGLOBIN 11.8 GM/dL (10.7-15.3); LYMPH % 25.3 % (8-40); MCH 27.1 pg (25.7-33.7); MCHC 30.9 g/dl (32.0-36.0); MEAN CELL VOLUME 87.8 fl (80-96); MONO % 6.2 % (3.8-10.2); NEUT % 62.7 % (42.8-82.8); PLATELET COUNT 320 10^3/uL (134-434); RBC 4.35 M/mm3 (3.60-5.2); RDW 21.8 % (11.6-15.6); WHITE BLOOD COUNT 5.8 K/mm3 (4.0-10.0)
[2021-07-08 22:28] LABS: ALBUMIN 4.2 g/dl (3.4-5.0); BLOOD UREA NITROGEN 7.5 mg/dL (7-18); CALCIUM 9.2 mg/dL (8.5-10.1)
[2021-07-08 22:31] LABS: CREATININE 0.8 mg/dL (0.55-1.3)
[2021-07-08 22:33] LABS: BILIRUBIN,TOTAL 0.3 mg/dL (0.2-1)
[2021-07-08 22:49] LABS: ANISOCYTOSIS 1+; MACROCYTOSIS 0; OVALOCYTE 1+; PLATELET ESTIMATE NORMAL
== END 2021-07-08 23:52 | disposition home or self-care (01) ==
LOC: JER 18:28
DX: R42 Dizziness and giddiness (principal)
CPT/HCPCS: 36415; 70450-TC; 72125-TC; 80053; 85025; 93005; 93010; 99284-25